=== PATIENT | female | born 1990 | race African-American/Black ===

== ENCOUNTER 2021-10-05 19:43 | Emergency (ER) | payer MEDICAID ==
[~2021-10-05] VITALS: Ht 170.2 cm; Wt 66.0 kg
[2021-10-05] MEDS ORDERED: ONDANSETRON HCL 4MG/2ML INJ IV STA (19:53)
[2021-10-05] MEDS ORDERED: SODIUM CHLORIDE 0.9% 1,000 ML IV ONE (20:00)
[2021-10-05 20:25] LABS: BASOPHILS % 0.6 % (0.0-2.0); EOSINOPHILS % 0.2 % (0.0-5.0); HEMATOCRIT. 36.2 % (36.0-48.0); LYMPHOCYTES % 25.9 % (20.0-50.0); MEAN CORPUSCULAR HEMOGLOBIN 30.2 pg (28.0-32.0); MEAN CORPUSCULAR VOLUME 91.3 fL (81.0-99.0); MEAN PLATELET VOLUME 7.9 fl (7.4-10.4); MONOCYTES % 9.8 % (2.0-8.0); NEUTROPHILS % 63.5 % (40.0-76.0); PLATELET 212 x1000/uL (130-400); RED BLOOD CELL COUNT 3.96 mill/uL (4.2-5.4); RED CELL DISTRIBUTION WIDTH 13.4 % (11.6-14.6)
[2021-10-05] MEDS ORDERED: KETOROLAC 15MG/ML VIAL IV ONE (20:30)
[2021-10-05 20:33] LABS: CHLORIDE 105 mEq/L (98-107)
[2021-10-05 20:38] LABS: HCG SCREEN NEGATIVE
[2021-10-05] MEDS ORDERED: HALOPERIDOL LACTATE 5MG/ML VIAL IM ONE (21:45)
[2021-10-05 21:48] VITALS: BP 108/70
== END 2021-10-05 23:16 | disposition left against medical advice (07) ==
LOC: ER 19:43
DX: R10.13 Epigastric pain (principal)
CPT/HCPCS: 36415; 80053; 82962; 83690; 84703; 85025; 93005; 96361; 96372; 96374; 96375; 99284; J1630; J1885; J2405; J7030; Z7610